=== PATIENT | male | born 1960 | race Caucasian/White ===

== ENCOUNTER 2021-10-10 12:12 | Emergency (ER) | payer BC ==
--- NOTE | 2021-10-10 13:17 | XRAY ---
Indication: Pain following fall. Multiple contiguous axial images obtained through the facial bones. Sagittal and coronal reformatted images obtained. Comparison: None Patient is near edentulous with a few bilateral dental amalgams produces beam artifact. No acute fracture, suspicious bony lesions, or opaque foreign body. Orbits including roof, santana, and floor is intact. Mild left and minimal right maxillary sinus mucosal thickening. Remaining paranasal sinuses and nasal passages are clear. Minimal nasal septal deviation to the right. Visualized noncontrasted soft tissues including orbits are unremarkable. Impression: Bilateral maxillary sinus disease. Remaining CT facial bones negative.
--- NOTE | 2021-10-10 13:17 | XRAY ---
Indication: Pain following fall. Multiple contiguous axial images obtained through the head without contrast. Comparison: None Age-appropriate global atrophy, small remote bifrontal lobe infarcts, and remote lacunar infarct left basal ganglia. No acute intracranial hemorrhage, hydrocephalus, or mass effect. Bony calvarium intact. Visualized paranasal sinuses and mastoid air cells are clear. 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
--- NOTE | 2021-10-10 13:22 | XRAY ---
Indication: Pain following fall. Multiple contiguous axial images obtained through the cervical spine. Sagittal and coronal reformatted images obtained. Comparison: None Axial images negative for acute fracture, suspicious bony lesions, or spinal canal stenosis. Minimal/mild C4-C6 degenerative endplate spurring, mild/moderate multilevel bilateral degenerative facet hypertrophy, and tiny C4-C5 degenerative vacuum disc phenomena. Also mild atlantoaxial degenerative changes. Sagittal and coronal reformatted images demonstrates lordotic straightening, positional versus paraspinal spasm. Vertebral body heights/disc spaces maintained. No acute compression fracture, subluxation, or jumped facet. Normal appearing craniocervical junction. Visualized noncontrasted soft tissues demonstrates moderate bilateral carotid calcifications. Lung apices are clear. Impression: 1. Negative acute fracture/subluxation. 2. Cervical lordotic straightening, positional versus paraspinal spasm. 3. Multilevel degenerative changes and bilateral carotid calcifications.
[2021-10-10] MEDS ORDERED: Adacel Vial IM ONE ×2 (13:38→13:45)
[2021-10-10] MEDS ORDERED: TORAdol 30 mg Injection IM ONE (13:42)
[2021-10-10] MEDS ORDERED: TORAdol 30 mg Injection ONE (13:44)
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
[2021-10-10 14:31] VITALS: BP 138/74; PULSE 66
[2021-10-11 01:38] VITALS: O2SAT 95
== END 2021-10-10 14:31 | disposition home or self-care (01) ==
LOC: ED 12:12
DX: S09.90XA Unspecified injury of head, initial encounter (principal); S16.1XXA Strain of muscle, fascia and tendon at neck level, initial encounter; S00.83XA Contusion of other part of head, initial encounter; W01.10XA Fall on same level from slipping, tripping and stumbling with subsequent striking against unspecified object, initial encounter; Y93.01 Activity, walking, marching and hiking; R51.9 Headache, unspecified; E78.5 Hyperlipidemia, unspecified; I10 Essential (primary) hypertension; E11.9 Type 2 diabetes mellitus without complications; Z79.84 Long term (current) use of oral hypoglycemic drugs; Z79.899 Other long term (current) drug therapy
CPT/HCPCS: 70450; 70486; 72125; 90471; 90715; 96372; 99283; J1885